=== PATIENT | male | born 1990 | race Caucasian/White ===

== ENCOUNTER 2017-09-24 02:22 | Emergency (ER) | payer MEDICAID ==
[~2017-09-24] VITALS: Ht 185.4 cm; Wt 88.5 kg
--- NOTE | 2017-09-24 02:22 | NUR ---
PT [place] [employer], PREBOOK. TAKEN TO OF4
[2017-09-24 02:25] VITALS: BP 158/70
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
== END 2017-09-24 02:50 ==
LOC: MED 02:22
DX: Z02.89 Encounter for other administrative examinations (principal); J06.9 Acute upper respiratory infection, unspecified; R03.0 Elevated blood-pressure reading, without diagnosis of hypertension
CPT/HCPCS: 99283

== ENCOUNTER 2018-03-06 16:58 | Inpatient (IN) | payer MEDICAID, OTHER ==
[~2018-03-06] VITALS: Ht 182.9 cm; Wt 104.3 kg
[2018-03-06 17:02] VITALS: BP 111/57
[2018-03-06] MEDS ORDERED: NACL 0.9% 1,000 ML IV ONE (17:10)
[2018-03-06 17:20] LABS: HEMATOCRIT 48.6 % (36-52); HEMOGLOBIN 15.4 g/dL (12.0-18.0); MEAN CORPUSCULAR HEMOGLOBIN 28 pg (27-31); MEAN CORPUSCULAR HGB CONC 32 g/dL (33-37); PLATELET COUNT (AUTO) 323 K/uL (140-450); RED BLOOD CELL COUNT(AUTO) 5.52 MIL/uL (4.20-6.10); RED CELL DISTRIBUTION WIDTH 15.7 % (11.6-13.7); WHITE BLOOD COUNT (AUTO) 19.7 K/uL (4.8-10.8)
--- NOTE | 2018-03-06 17:20 | NUR ---
PT BIBA, Per EMS, the mother witnessed the patient have 2 seizures, each lasting 1-2 minutes --> full tonic clonics. When EMS arrived on scene, EMS reports the patient was post-ictal the entire time. per EMS patient had another tonic clonic seizure with oral truama. Patient was given 0.25mg versed. EMS reports the patient was not compliant with his medications. Vitals: Blood sugar 135 per ems. pt is non responsive, airway is patent with spontaneous respirations even and unlabored. pt placed on all monitors, tachycardia at 130 bpm observed. pt placed on 5l via nc, o2 sats 97%, vs wnl otherwise. dr parada at bedside along with other er staff.
--- NOTE | 2018-03-06 17:24 | NUR ---
humphrey cath placed by joe Langley, draining clear yellow urine 200 ml output. 20 G IV placed by joe Johnson to LAC, blood drawn from IV. IVF NS bolus started per DR. DALTON.
--- NOTE | 2018-03-06 17:40 | NUR ---
DR DALTON AT BEDSIDE SPEAKING WITH FAMILY.
--- NOTE | 2018-03-06 17:40 | NUR ---
PT TO CT WITH YAZ MCGOWAN
[2018-03-06 17:41] LABS: EOSINOPHILS % (MANUAL) 3 % (0-4); LYMPHOCYTES % (MANUAL) 43 % (20-46); MONOCYTES % (MANUAL) 11 % (5-12)
--- NOTE | 2018-03-06 17:43 | NUR ---
PT WOKE UP, ABLE TO RECOGNIZE MOTHER, WAS ABLE TO EXPRESS NEEDS, AXO X3. REPORTS FEELING MILD DIZZINESS. FOLLOWING COMMANDS WELL. [facility] 15. DR DALTON AT BEDSIDE SPEAKING WITH PT, PT ANSWERING QUESTIONS IN FULL SENTENCES
[2018-03-06 18:03] LABS: ALBUMIN 4.6 g/dL (3.4-5.0); CREATININE 1.6 mg/dL (0.7-1.3); TOTAL BILIRUBIN 0.5 mg/dL (0.0-1.0)
--- NOTE | 2018-03-06 18:05 | NUR ---
PT IS FATIGUED, CONTINUES TO FALL ASLEEP. NO CHANGE IN CONDITION OTHERWISE. PT FOLLOWS COMMANDS WELL WHEN AWAKE.
[2018-03-06] MEDS ORDERED: LEVE1000 PO (18:06)
[2018-03-06 18:14] LABS: POTASSIUM 4.5 mmol/L (3.5-5.1)
[2018-03-06 18:20] LABS: ANION GAP 44.4 (8-16)
[2018-03-06 18:24] LABS: APPEARANCE,URINE CLEAR (CLEAR); BILIRUBIN,URINE NEGATIVE (NEGATIVE); BLOOD, URINE TRACE-I (NEGATIVE); COLOR,URINE YELLOW (YELLOW); LEUKOCYTE ESTERASE ,URINE NEGATIVE (NEGATIVE); NITRITE, URINE NEGATIVE (NEGATIVE); UGLUCOSE NEGATIVE (NEGATIVE)
[2018-03-06] MEDS ORDERED: levETIRAcetam 500 MG in NACL 0.9% 100 ML IV ONE (18:25)
--- NOTE | 2018-03-06 18:28 | NUR ---
DR. BABCOCK MADE AWARE OF CRITICAL RESULTS OF CT. SCAN HEAD. CODE BRAIN.
[2018-03-06 18:33] LABS: BARBITURATE, URINE NEG. ng/ml (NEG <=200); BENZODIAZEPINE, URINE NEG. ng/mL (NEG <=200); CANNABINOID, URINE POS. ng/mL (NEG <=50); COCAINE, URINE NEG. ng/mL (NEG <=300); OPIATE, URINE NEG. ng/mL (NEG <=2000); PHENCYCLIDINE SCREEN,URINE NEG. ng/mL (NEG <=25)
[2018-03-06 18:35] LABS: RBC,URINE 0-5 (RARE) /HPF (0-5); WBC,URINE 0-5 (RARE) /HPF (0-5)
--- NOTE | 2018-03-06 18:37 | NUR ---
RT AT BEDSIDE FOR ABG
[2018-03-06] MEDS ORDERED: MORPHINE SULFATE 2 MG/ML SYR IVP PRN (18:50)
[2018-03-06] MEDS ORDERED: LORazepam 2 MG/ML VIAL IVP PRN (18:50)
[2018-03-06] MEDS ORDERED: ACETAMINOPHEN 325 MG TAB PO PRN (18:50)
--- NOTE | 2018-03-06 19:12 | NUR ---
REPORT GIVEN TO YAZ UP.
--- NOTE | 2018-03-06 19:13 | NUR ---
RECEIVED REPORT FROM AM NURSE. PT RESTING COMFORTABLY IN BED, RR EVEN AND UNLABORED. ALL NEEDS MET AT THIS TIME.
--- NOTE | 2018-03-06 19:25 | NUR ---
Patient will be admitted to care of DR. CHEN. Admited to TELE. Will go to room 122A. Belongings list completed. Report to YAZ LAWS AT BEDSIDE.
[2018-03-06 19:27] VITALS: BP 118/69
--- NOTE | 2018-03-06 19:27 | NUR ---
RECEIVED REPORT FROM ANNEL ER NURSE AT BEDSIDE. PT TRANSPORT BY MAY. PT HAS OJEDA IN PLACE. PT IV NOTED LAC 20G. IN ER PT GIVEN 1L BOLUS OF NS AND KEPPRA IV. PT IS ON SEIZURE PRECAUTION. PT IS AAOX2. NO SOB NO S/S OF DISTRESS. BED LOWERED SIDE RAILS PATTED WILL CONTINUE TO MONITOR.
--- NOTE | 2018-03-06 19:32 | NUR ---
Dr. Edwin Ulloa notified of neurology consultation.
[2018-03-06] MEDS: ALBUTEROL 0.083% 2.5 MG/3 ML NEBU INH SCH (20:24)
[2018-03-06] MEDS: IPRATROPIUM 0.02% 0.5 MG/2.5 ML NEBU INH SCH (20:25)
[2018-03-06] MEDS ORDERED: levETIRAcetam 500 MG in NACL 0.9% 100 ML IV SCH (21:00)
[2018-03-06] MEDS: NACL 0.9% 1,000 ML IV SCH (21:20)
--- NOTE | 2018-03-06 21:30 | NUR ---
PT MOM IS AT BEDSIDE GOT HISTORY FROM MOM. PT SLEEPING. PT HAS OJEDA INSERTED. WILL CONTINUE TO MONITOR.
--- NOTE | 2018-03-06 23:00 | NUR ---
CALLED DR ZELAYA LEFT MESSAGE ON CELL. WILL WAIT FOR CALL BACK. NEED TO VERIFY PHONE ORDER FOR ALON AND TO LET HIM KNOW IMPRESSIONS OF CT
[2018-03-07] VITALS: BP 104/58
[2018-03-07] MEDS ORDERED: PIPERACILLIN/TAZOBACTAM 3.375 GM VIAL IV ONE ×2 (00:40→05:06)
[2018-03-07] MEDS: PIPERACILLIN/TAZOBACTAM 3.375 GM in DEXTROSE 5% 50 ML IV SCH ×2 (00:46→06:00)
[2018-03-07] MEDS: ALBUTEROL 0.083% 2.5 MG/3 ML NEBU INH SCH ×3 (01:00→13:00)
[2018-03-07] MEDS: IPRATROPIUM 0.02% 0.5 MG/2.5 ML NEBU INH SCH ×3 (01:00→13:00)
--- NOTE | 2018-03-07 01:12 | NUR ---
pt asleep. did not give hhntx.pt bs are clear no sob noted
--- NOTE | 2018-03-07 01:30 | NUR ---
PT SLEEPING. NO SOB. NO S/S OF DISTRESS. WILL CONTINUE TO MONITOR.
[2018-03-07] MEDS ORDERED: OXYTOCIN 10 UNITS/ML VIAL ONE (02:20)
[2018-03-07] MEDS ORDERED: ceFAZolin 1,000 MG VIAL ONE (02:20)
[2018-03-07] MEDS ORDERED: BUPIVACAINE-MPF 0.75% 10 ML VIAL INJ ONE (02:20)
[2018-03-07] MEDS ORDERED: ONDANSETRON 4 MG/2 ML VIAL ONE (02:20)
[2018-03-07 03:08] VITALS: BP 106/52
[2018-03-07 06:25] LABS: BASOPHILS % (AUTO) 0.3 % (0.0-2.0); EOSINOPHILS % (AUTO) 0.4 % (0.0-4.0); HEMOGLOBIN 13.1 g/dL (12.0-18.0); LYMPHOCYTES # (AUTO) 1.7 K/uL (2.0-11.5); MEAN CORPUSCULAR HEMOGLOBIN 28 pg (27-31); MEAN CORPUSCULAR HGB CONC 35 g/dL (33-37); MONOCYTES # (AUTO) 1.2 K/uL (0.8-1.0); MONOCYTES % (AUTO) 11.1 % (1.7-9.3); NEUTROPHILS # (AUTO) 8.1 K/uL (1.8-7.7); NEUTROPHILS % (AUTO) 73.2 % (42.2-75.2); PLATELET COUNT (AUTO) 230 K/uL (140-450); RED CELL DISTRIBUTION WIDTH 14.9 % (11.6-13.7); WHITE BLOOD COUNT (AUTO) 11.1 K/uL (4.8-10.8)
--- NOTE | 2018-03-07 07:21 | NUR ---
GAVE REPORT TO DAYSHIFT NURSE AT BEDSIDE FOR CONTINUITY OF CARE.
--- NOTE | 2018-03-07 07:22 | NUR ---
RECEIVED REPORT FROM FILLER SHREDDER HELPER NURSE, PT IS RESTING IN BED, AAOX4, CURRENTLY RECEIVING A BREATHING TREATMENT, PT HAS IV ON HIS LEFT AC, PATENT, INTACT, FLUSHING WELL, NO S/S OF RESPIRATORY DISTRESS OR DISCOMFORT NOTED, DISCUSSED PLAN OF CARE WITH PT, PT VERBALIZED UNDERSTANDING, SAFETY/FALL/SEIZURE PRECAUTIONS ARE IN PLACE, CALL LIGHT WITHIN REACH, WILL CONTINUE TO MONITOR.
[2018-03-07 08:00] VITALS: BP 138/79
[2018-03-07 08:24] LABS: ALBUMIN 3.6 g/dL (3.4-5.0); ANION GAP 14.3 (8-16); CARBON DIOXIDE 23.6 mmol/L (21-32); CREATININE 1.3 mg/dL (0.7-1.3); POTASSIUM 3.9 mmol/L (3.5-5.1); TOTAL BILIRUBIN 0.9 mg/dL (0.0-1.0)
--- NOTE | 2018-03-07 08:37 | NUR ---
PATIENT HAS BEEN SCREENED AND CATEGORIZED LOW NUTRITION RISK. PATIENT WILL BE SEEN WITHIN 7 DAYS OF ADMISSION. 03/13/[address]
[2018-03-07] MEDS ORDERED: levETIRAcetam 1,000 MG in NACL 0.9% 100 ML IV SCH (09:00)
[2018-03-07] MEDS ORDERED: ECOTRIN 81 MG TABEC PO SCH (09:00)
[2018-03-07] MEDS ORDERED: levETIRAcetam 500 MG TAB PO SCH (09:00)
[2018-03-07] MEDS: NACL 0.9% 1,000 ML IV SCH (09:20)
--- NOTE | 2018-03-07 10:46 | NUR ---
OJEDA CATHETER DISCONTINUED AT THIS TIME, PT TOLERATED WELL, CALL LIGHT WITHIN REACH.
[2018-03-07] MEDS: PIPER/TAZO 3.375GM/D5W PREMIX 50 ML IV SCH ×2 (11:38→12:50)
[2018-03-07 12:00] VITALS: BP 114/65
--- NOTE | 2018-03-07 13:37 | NUR ---
I CALLED DR. ZELAYA (NEUROLOGIST) PER DR. ZELAYA PATIENT MAYBE DISCHARGED HOME.
--- NOTE | 2018-03-07 16:00 | NUR ---
PT DISCHARGE INSTRUCTIONS GIVEN, PT IV REMOVED, CATHETER TIP INTACT, ID WRIST BAND REMOVED. PT ACCOMPANIED BY HIS MOTHER. PT STABLE UPON DISCHARGE.
--- NOTE | 2018-03-08 14:34 | NUR ---
INITIAL REVIEW FAXED TO [facility] [phone]
== END 2018-03-07 16:20 | disposition home or self-care (01) | DRG 53 ==
LOC: MED 16:58 → MTU 18:57
PROVIDERS: ADMIT Hospitalist; ATTEND Hospitalist
DX: G40.409 Other generalized epilepsy and epileptic syndromes, not intractable, without status epilepticus (principal); G93.40 Encephalopathy, unspecified; N17.9 Acute kidney failure, unspecified; E87.2 Acidosis; R09.02 Hypoxemia; D72.829 Elevated white blood cell count, unspecified; F12.10 Cannabis abuse, uncomplicated; F10.10 Alcohol abuse, uncomplicated; Y90.9 Presence of alcohol in blood, level not specified; E86.0 Dehydration; Z91.19 Patient's noncompliance with other medical treatment and regimen; Z79.899 Other long term (current) drug therapy; Z91.14 Patient's other noncompliance with medication regimen
CPT/HCPCS: 36415; 36600; 70450; 71045; 80053; 80305; 81001; 82550; 82803; 84484; 85025; 87081; 93005; 94640; 95816; 96361; 96365; 99291; J0690; J1644; J1953; J2405; J2543; J2590; J3490; J7030; J7060; J7613; J7644; Q0092

== ENCOUNTER 2018-06-29 13:19 | Inpatient (IN) | payer OTHER ==
[~2018-06-29] VITALS: Ht 188 cm; Wt 87.1 kg
[~2018-06-29 13:19] MED LIST: LEVE1000 PO
[2018-06-29 13:30] VITALS: BP 118/67
[2018-06-29] MEDS ORDERED: LORazepam 2 MG/ML VIAL IM ONE (13:35)
[2018-06-29] MEDS ORDERED: HALOPERIDOL IM 5 MG/ML VIAL IM ONE (13:35)
--- NOTE | 2018-06-29 14:00 | NUR ---
Eli arevalo in ED - 06/29/18 at 1427 by MED1 X RAY AT BEDSIDE.
--- NOTE | 2018-06-29 14:07 | NUR ---
27/M [place] & [place] [employer] FROM HOME ON HOLD 5150 .PER [place] [employer]; PT STATED WANT TO KILL HIMSELF & DOES NOT KNOW WHAT HAPPENED THAT HE HAS NOSE & JUSTIN KNEES ARASION. PT HAS HX OF DEPRESSION & SEIZURE. PT STATED " I WANT TO GO HOME & DON'T WANT TO HURT ANYONE OR MYSELF. PATIENT STATES PAIN OF 0/10 AT THIS TIME. PATIENT POSITIONED FOR COMFORT; HOB ELEVATED; BEDRAILS UP X2; BED DOWN. ER MD MADE AWARE OF PT STATUS.
[2018-06-29] MEDS ORDERED: diphenhydrAMINE 50 MG/ML VIAL IM ONE (14:10)
[2018-06-29 14:15] LABS: BASOPHILS % (AUTO) 0.4 % (0.0-2.0); EOSINOPHILS % (AUTO) 0.1 % (0.0-4.0); HEMOGLOBIN 14.3 g/dL (12.0-18.0); LYMPHOCYTES # (AUTO) 1.7 K/uL (2.0-11.5); LYMPHOCYTES % (AUTO) 21.2 % (20.5-51.1); MEAN CORPUSCULAR HEMOGLOBIN 29 pg (27-31); MEAN CORPUSCULAR HGB CONC 34 g/dL (33-37); MEAN CORPUSCULAR VOLUME 84.8 fL (80-94); MONOCYTES # (AUTO) 0.5 K/uL (0.8-1.0); MONOCYTES % (AUTO) 6.3 % (1.7-9.3); NEUTROPHILS # (AUTO) 5.6 K/uL (1.8-7.7); PLATELET COUNT (AUTO) 221 K/uL (140-450); RED BLOOD CELL COUNT(AUTO) 4.95 MIL/uL (4.20-6.10); WHITE BLOOD COUNT (AUTO) 7.8 K/uL (4.8-10.8)
--- NOTE | 2018-06-29 14:27 | NUR ---
X RAY AT BEDSIDE.
[2018-06-29] MEDS ORDERED: CLINDAMYCIN 600 MG/4 ML VIAL IM ONE (14:30)
[2018-06-29 14:35] LABS: ALBUMIN 4.5 g/dL (3.4-5.0); ANION GAP 15.2 (8-16); ASPARTATE AMINOTRANSFERASE 24 U/L (15-37); CARBON DIOXIDE 24.1 mmol/L (21-32); CHLORIDE 107 mmol/L (98-107); CREATININE 0.9 mg/dL (0.7-1.3); GFR ARICAN-AMERICAN 128 mL/min (>90); GLUCOSE 101 mg/dL (74-106); POTASSIUM 3.3 mmol/L (3.5-5.1); SODIUM SERUM 143 mmol/L (136-145); TOTAL BILIRUBIN 0.6 mg/dL (0.0-1.0); UREA NITROGEN, BLOOD 10 mg/dL (7-18)
[2018-06-29 14:48] LABS: ACETAMINOPHEN < 0.5 ug/ml (10-30); SALICYLATE < 2.8 mg/dL (2.8-20.0)
[2018-06-29 16:51] LABS: BARBITURATE, URINE NEG. ng/ml (NEG <=200); BENZODIAZEPINE, URINE NEG. ng/mL (NEG <=200); CANNABINOID, URINE POS. ng/mL (NEG <=50); OPIATE, URINE NEG. ng/mL (NEG <=2000)
--- NOTE | 2018-06-29 16:55 | NUR ---
Patient appears to be resting comfortably in bed. Vital Signs within normal limits. Respirations even and unlabored.WILL CONTINUE TO MONITOR.
--- NOTE | 2018-06-29 17:14 | NUR ---
RECEIVED REPORT FROM EVELIO, LAB : URINE ABNORMAL REACTION FOR COCAINE & PCP, CANNABINOIDS +. NOTIFIED TO DR SCHWARZ.
[2018-06-29 17:40] LABS: COCAINE, URINE NEGATIVE ng/mL (NEG <=300); PHENCYCLIDINE SCREEN,URINE NEGATIVE ng/mL (NEG <=25)
--- NOTE | 2018-06-29 17:54 | NUR ---
food tray provided for pt with steroform at this time. Addendum: 06/29/18 at 1835 by [email or web address] ATE 50% OF FOOD.LIBBY N/V AT THIS TIME
--- NOTE | 2018-06-29 18:36 | NUR ---
REPORT GIVEN TO ELEN MUKHERJEE . PT AT BED 5.
--- NOTE | 2018-06-29 18:37 | NUR ---
LAB AT BEDSIDE.
--- NOTE | 2018-06-29 18:56 | NUR ---
PT RESTING IN BED, VSS AT THIS TIME
--- NOTE | 2018-06-29 19:46 | NUR ---
RECEIVED REPORT FROM YAZ MYRICK, ASSUMED CARE OF PT AT THIS TIME. PT LAYING IN BED SLEEPING AROUSABLE TO VERBAL STIMULI, CALM AND ACTING APPROPRIATE.
--- NOTE | 2018-06-29 20:45 | NUR ---
PT SLEEPING AROUSABLE TO VERBAL STIMULI, PT DENIES SUICIDAL IDEATION AT THIS TIME.
--- NOTE | 2018-06-29 21:01 | NUR ---
INITIATED TELE PSYCH PER DR. FORD
--- NOTE | 2018-06-29 21:19 | NUR ---
TELE PSYCH DOCTOR, DR. SHORT, SPOKE WITH RN. Yves BATEMAN
--- NOTE | 2018-06-29 21:38 | NUR ---
DR. SHORT SPEAKING WITH PATIENT THROUGH TELE PSYCH
--- NOTE | 2018-06-29 22:40 | NUR ---
PATIENT MOTHER AT BEDSIDE.
--- NOTE | 2018-06-29 23:00 | NUR ---
WILL CONTINUE W/ HOLD, PT MADE AWARE, MOTHER AWARE OF PT STATUS, PT CALM AND ACTING APPROPRIATE.
--- NOTE | 2018-06-30 00:01 | NUR ---
Patient appears to be resting comfortably in bed. Vital Signs within normal limits. Respirations even and unlabored.emt beka at bedside
[2018-06-30] MEDS ORDERED: LAM25 PO ×2 (00:10→20:33)
[2018-06-30] MEDS: NACL 0.9% 1,000 ML IV SCH ×3 (00:38→12:49)
[2018-06-30] MEDS ORDERED: LORazepam 2 MG/ML VIAL IVP PRN (00:40)
[2018-06-30] MEDS ORDERED: MORPHINE SULFATE 2 MG/ML SYR IVP PRN (00:40)
[2018-06-30] MEDS ORDERED: HYDROcodone/APAP 5/325 MG 1 TAB TAB PO PRN (00:40)
[2018-06-30] MEDS ORDERED: ONDANSETRON 4 MG/2 ML VIAL IVP PRN (00:40)
[2018-06-30] MEDS ORDERED: ACETAMINOPHEN 325 MG TAB PO PRN (00:40)
[2018-06-30 01:00] VITALS: BP 134/95
--- NOTE | 2018-06-30 01:00 | NUR ---
Admitted from ER TO MED SURGICAL UNIT , with chief complaint of ALTERED MENTAL STATUS, 27 y/o ,Male, Cooperative. WAS PUT ON 5150 HOLD BY [place] [employer], PER REPORT PATIENT STATED HE WANTS TO KILL HIMSELF BUT DENIES SUICIDAL THOUGHTS AT THIS TIME. SALINE LOCK AT THE LEFT HAND G20, PATENT AND INTACT. POSITIVE FOR ALCOHOL AND CANNABINOIDS. NOTED SCAB ON THE BRIDGE OF NOSE AND WITH ABRASIONS ON BOTH KNEES, STATED HE GOT IT WHEN HE FELL. PLAN OF CARE DISCUSSED. VERBALIZED UNDERSTANDING. DENIES PAIN 0/10. oriented to call light, bed, phone,television, bathroom, smoking policy,visiting hours, procedures, ID bracelet on. Belongings list checked.
--- NOTE | 2018-06-30 01:00 | NUR ---
Patient will be admitted to care of DR CLEMENTE. Admited to MED SURG. Will go to [id number]. Belongings list completed. Report to YAZ BOWLING.
--- NOTE | 2018-06-30 01:15 | NUR ---
ADMIT PHOTOS TAKEN OF BILATERAL ABRASION OF THE KNEES AND MEDIAL ABRASION SCAB ON THE NOSE.
--- NOTE | 2018-06-30 01:30 | NUR ---
Patient's Plan of Care was discussed and reviewed with DYE HOUSE WORKER: TAWNYA CLEMONS LVN.
--- NOTE | 2018-06-30 01:30 | NUR ---
PT DENIED FLU VAC.
--- NOTE | 2018-06-30 04:40 | NUR ---
[facility] aware patient is admitted into Tele Unit. Patients Chart faxed over to Lakeisha DUVALL, Lakeisha PEREZ, and Ferdinand Rossi for review. No update from contacted hospitals at this time. No bed vacancies at the following facilities: Lakeisha DUVALL s/w Wily Su[facility] [place] s/w Socorro Almanza s/w Adelaida Campbell [facility] Left Message No answer Ferdinand Rossi s/w Loretta Veliz s/w Stephanie Garrett On License Of [facility] s/w Yan Anthony Comm s/w Sumi will endorse to morning shift to continue looking for placement.
--- NOTE | 2018-06-30 05:30 | NUR ---
SLEEPING COMFORTABLY IN BED. 1:1 SITTER MONITORING PATIENT BEHAVIOR.
--- NOTE | 2018-06-30 07:15 | NUR ---
SLEPT WELL. CONDITION REMAIN STABLE. ENDORSED TO YAZ MAHER FOR CONTINUITY OF CARE.
--- NOTE | 2018-06-30 07:30 | NUR ---
RECEIVED ON BED AAOX4. NO SOB NOTED. NO C/O PAIN AT THIS TIME. IV TO LT HAND PATENT AND INTACT. CHEST CLEAR. ABDOMEN SOFT, BOWEL SOUNDS PRESENT. NO EDEMA NOTED. ABRASIONS TO NOSE BRIDGE AND BILATERAL KNEES NOTED, OPEN TO AIR. NO SUICIDAL THOUGHTS PER PT AT THIS TIME. INSTRUCTED PT TO CALL FOR ASSISTANCE, WITH 1:1 SITTER AT THE BEDSIDE. PT VERBALIZED UNDERSTANDING.
[2018-06-30 08:00] VITALS: BP 112/50
--- NOTE | 2018-06-30 08:05 | NUR ---
PATIENT HAS BEEN SCREENED AND CATEGORIZED LOW NUTRITION RISK. PATIENT WILL BE SEEN WITHIN 7 DAYS OF ADMISSION. 07/06/[address]
[2018-06-30] MEDS ORDERED: ENOXAPARIN 40 MG/0.4 ML SYR SUBQ SCH (09:00)
--- NOTE | 2018-06-30 10:31 | NUR ---
CM NOTE ADMISSION REVIEW DONE. INITIAL REVIEW FAXED TO [facility] [phone] SEAN # [phone].
[2018-06-30 16:00] VITALS: BP 140/73
--- NOTE | 2018-06-30 17:44 | NUR ---
PT SEEN BY DR. CLEMENTE AT THE BEDSIDE. NEW ORDERS GIVEN. CALLED DR. COOLEY REGARDING THE [facility] CONSULT, STATED HE WILL SEE PT WITHIN AN HOUR. DR. CLEMENTE NOTIFIED. Addendum: 06/30/18 at 1928 by Sandy Morales RN *PSYCHIATRIST CONSULT*
--- NOTE | 2018-06-30 19:00 | NUR ---
RECEIVED BEDSIDE REPORT FROM YAZ MAHER. PT IN BED, ON RA, 1:1 SITTER NO SIGNS OF ACUTE DISTRESS. IV IN LEFT HAND 20 G, SL. V/S TAKEN B/P: 150/75 REASSESSED PT LYING DOWN 135/50. HR: 61, TEMP 98.3, O2 SAT 97%, DENIES PAIN. EXPLAINED PLAN OF CARE. WILL CONTINUE TO MONITOR.
--- NOTE | 2018-06-30 19:00 | NUR ---
PT RESTING. NO SOB NOTED. NO COMPLAINTS MADE. WILL ENDORSE TO NEXT SHIFT NURSE FOR CONTINUITY OF CARE.
[2018-06-30 20:00] VITALS: BP 150/75
--- NOTE | 2018-06-30 20:15 | NUR ---
CALLED DR NEWMAN TO CLARIFY IF PT CAN BE CLEARED OF [address] NEWMAN STATED "YES THAT'S FINE". ORDER TO DISCONTINUE HOLD, WILL PUT IN ORDER TO DISCONTINUE [address] CLEMENTE TO CLARIFY IF OKAY TO DISCHARGE PATIENT HOME. Addendum: 06/30/18 at 2152 by Camille Back RN NO RECOMMENDATIONS FOR PATIENT ACCORDING TO DR NEWMAN.
--- NOTE | 2018-06-30 20:23 | NUR ---
CALL FROM GREG DARLING TO DISCHARGE PATIENT HOME. NO NEW MEDICATIONS ORDERED. WILL PUT IN ORDER TO DISCHARGE PATIENT.
[2018-06-30 20:37] VITALS: BP 135/58
[2018-06-30] MEDS ORDERED: levETIRAcetam 500 MG TAB PO SCH (21:00)
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
--- NOTE | 2018-07-01 14:33 | NUR ---
No new updates/No beds from the following faxed facilities: Lakeisha Siddiqui [facility]
== END 2018-06-30 21:20 | disposition home or self-care (01) | DRG 775 ==
LOC: MED 13:19 → MTU 06-30 00:38
PROVIDERS: ADMIT Internal Medicine; ATTEND Internal Medicine
PROC: 3E0234Z Introduction of Serum, Toxoid and Vaccine into Muscle, Percutaneous Approach (ICD-10-PCS; principal; 2018-06-30)
DX: F10.129 Alcohol abuse with intoxication, unspecified (principal); R45.851 Suicidal ideations; E87.6 Hypokalemia; G40.909 Epilepsy, unspecified, not intractable, without status epilepticus; Y90.8 Blood alcohol level of 240 mg/100 ml or more; F32.9 Major depressive disorder, single episode, unspecified; F17.210 Nicotine dependence, cigarettes, uncomplicated; Z79.899 Other long term (current) drug therapy; Z91.5 Personal history of self-harm; Z23 Encounter for immunization
CPT/HCPCS: 36415; 70160; 71045; 80053; 80305; 85025; 87081; 90471; 90715; 93005; 96372; 99285; C1758; G0480; G0482; J1200; J1630; J1650; J2060; J3490; J7030; Q0092

== ENCOUNTER 2018-10-22 16:54 | Emergency (ER) | payer OTHER ==
[~2018-10-22] VITALS: Ht 172.7 cm; Wt 79.4 kg
[~2018-10-22 16:54] MED LIST changes: +LAM25 PO; -LEVE1000 PO
--- NOTE | 2018-10-22 17:00 | NUR ---
PT TAKEN TO BED 9 BY WHEELCHAIR.
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
[2018-10-22 17:35] VITALS: BP 142/95
--- NOTE | 2018-10-22 19:04 | NUR ---
Recieved report from Jos MUKHERJEE.
[2018-10-22 20:02] LABS: BASOPHILS # (AUTO) 0.1 K/uL (0.00-0.22); BASOPHILS % (AUTO) 0.9 % (0.0-2.0); EOSINOPHILS # (AUTO) 0.1 K/uL (0-0.4); EOSINOPHILS % (AUTO) 0.7 % (0.0-4.0); HEMATOCRIT 43.6 % (36-52); HEMOGLOBIN 14.4 g/dL (12.0-18.0); LYMPHOCYTES # (AUTO) 2.5 K/uL (2.0-11.5); LYMPHOCYTES % (AUTO) 30.9 % (20.5-51.1); MEAN CORPUSCULAR HEMOGLOBIN 28 pg (27-31); MEAN CORPUSCULAR HGB CONC 33 g/dL (33-37); MEAN CORPUSCULAR VOLUME 84.7 fL (80-94); MONOCYTES # (AUTO) 0.6 K/uL (0.8-1.0); MONOCYTES % (AUTO) 7.8 % (1.7-9.3); NEUTROPHILS # (AUTO) 4.8 K/uL (1.8-7.7); NEUTROPHILS % (AUTO) 59.7 % (42.2-75.2); PLATELET COUNT (AUTO) 271 K/uL (140-450); RED BLOOD CELL COUNT(AUTO) 5.15 MIL/uL (4.20-6.10); RED CELL DISTRIBUTION WIDTH 13.8 % (11.6-13.7); WHITE BLOOD COUNT (AUTO) 8.1 K/uL (4.8-10.8)
[2018-10-22 20:08] LABS: CARBON DIOXIDE 30.7 mmol/L (21-32); CREATININE 0.9 mg/dL (0.7-1.3); POTASSIUM 3.7 mmol/L (3.5-5.1)
[2018-10-22 20:14] LABS: ALBUMIN 4.1 g/dL (3.4-5.0); TOTAL BILIRUBIN 0.6 mg/dL (0.0-1.0)
[2018-10-22 20:30] LABS: APPEARANCE,URINE CLEAR (CLEAR); BILIRUBIN,URINE NEGATIVE (NEGATIVE); BLOOD, URINE NEGATIVE (NEGATIVE); COLOR,URINE YELLOW (YELLOW); LEUKOCYTE ESTERASE ,URINE NEGATIVE (NEGATIVE); NITRITE, URINE NEGATIVE (NEGATIVE); PH,URINE 7.5 (5.0-9.0); UGLUCOSE NEGATIVE (NEGATIVE)
[2018-10-22 20:36] VITALS: BP 129/78
--- NOTE | 2018-10-22 20:36 | NUR ---
Patient discharged with v/s stable. Written and verbal after care instructions given and explained. Patient verbalized understanding. Ambulatory with steady gait. All questions addressed prior to discharge. Advised to follow up with PMD.
[2018-10-22 20:38] LABS: BARBITURATE, URINE NEG. ng/ml (NEG <=200); BENZODIAZEPINE, URINE NEG. ng/mL (NEG <=200); CANNABINOID, URINE POS. ng/mL (NEG <=50); COCAINE, URINE NEG. ng/mL (NEG <=300); OPIATE, URINE NEG. ng/mL (NEG <=2000); PHENCYCLIDINE SCREEN,URINE NEG. ng/mL (NEG <=25)
== END 2018-10-22 20:36 | disposition home or self-care (01) ==
LOC: MED 16:54
DX: F41.9 Anxiety disorder, unspecified (principal); F15.90 Other stimulant use, unspecified, uncomplicated; F12.90 Cannabis use, unspecified, uncomplicated; F17.210 Nicotine dependence, cigarettes, uncomplicated; Z79.899 Other long term (current) drug therapy
CPT/HCPCS: 36415; 71045; 80053; 80305; 81003; 84484; 85025; 93005; 99284; Q0092

== ENCOUNTER 2019-04-15 01:40 | Inpatient (IN) | payer OTHER ==
[~2019-04-15] VITALS: Ht 188 cm; Wt 88.0 kg
[2019-04-15 01:42] VITALS: BP 142/116
--- NOTE | 2019-04-15 01:43 | NUR ---
PT [facility]. TAKEN TO BED 5
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
--- NOTE | 2019-04-15 01:53 | NUR ---
TELEPSYCH INITIATED PER DR. Macy ESCOBAR
[2019-04-15 02:18] LABS: BASOPHILS # (AUTO) 0.1 K/uL (0.00-0.22); BASOPHILS % (AUTO) 0.8 % (0.0-2.0); EOSINOPHILS % (AUTO) 0.3 % (0.0-4.0); HEMOGLOBIN 14.2 g/dL (12.0-18.0); LYMPHOCYTES % (AUTO) 23.2 % (20.5-51.1); MEAN CORPUSCULAR HEMOGLOBIN 28 pg (27-31); MEAN CORPUSCULAR HGB CONC 34 g/dL (33-37); MONOCYTES # (AUTO) 1.2 K/uL (0.8-1.0); MONOCYTES % (AUTO) 9.5 % (1.7-9.3); NEUTROPHILS # (AUTO) 8.5 K/uL (1.8-7.7); NEUTROPHILS % (AUTO) 66.2 % (42.2-75.2); PLATELET COUNT (AUTO) 303 K/uL (140-450); RED BLOOD CELL COUNT(AUTO) 5.06 MIL/uL (4.20-6.10); RED CELL DISTRIBUTION WIDTH 14.2 % (11.6-13.7); WHITE BLOOD COUNT (AUTO) 12.8 K/uL (4.8-10.8)
--- NOTE | 2019-04-15 02:30 | NUR ---
PT IS AWAKE, SITTING ON BED. NO BEHAVIOR ISSUES. PRESENTS QUIET. DR ESCOBAR AWARE. WILL CONTINUE TO MONITOR [id number] WITH ED STAFF AT BEDSIDE.
[2019-04-15 02:35] LABS: BILIRUBIN,URINE 2+ (NEGATIVE); BLOOD, URINE NEGATIVE (NEGATIVE); COLOR,URINE YELLOW (YELLOW); LEUKOCYTE ESTERASE ,URINE NEGATIVE (NEGATIVE); NITRITE, URINE NEGATIVE (NEGATIVE); UGLUCOSE NEGATIVE (NEGATIVE)
[2019-04-15 02:39] LABS: ANION GAP 17.1 (8-16); CHLORIDE 101 mmol/L (98-107); CREATININE 1.1 mg/dL (0.7-1.3); GFR ARICAN-AMERICAN 101 mL/min (>90); GLUCOSE 79 mg/dL (74-106); POTASSIUM 4.1 mmol/L (3.5-5.1); SODIUM SERUM 143 mmol/L (136-145); UREA NITROGEN, BLOOD 22 mg/dL (7-18)
[2019-04-15 02:42] LABS: BARBITURATE, URINE NEG. ng/ml (NEG <=200); BENZODIAZEPINE, URINE NEG. ng/mL (NEG <=200); CANNABINOID, URINE POS. ng/mL (NEG <=50); COCAINE, URINE NEG. ng/mL (NEG <=300); OPIATE, URINE NEG. ng/mL (NEG <=2000); PHENCYCLIDINE SCREEN,URINE NEG. ng/mL (NEG <=25)
[2019-04-15 02:45] LABS: ALBUMIN 4.1 g/dL (3.4-5.0); ASPARTATE AMINOTRANSFERASE 21 U/L (15-37)
[2019-04-15 02:47] LABS: ACETAMINOPHEN < 0.5 ug/ml (10-30); SALICYLATE < 2.8 mg/dL (2.8-20.0)
[2019-04-15 02:48] LABS: APPEARANCE,URINE SLIGHTLY HAZY (CLEAR)
[2019-04-15 02:49] LABS: RBC,URINE 0-5 /HPF (0-5); WBC,URINE 0-5 /HPF (0-5)
--- NOTE | 2019-04-15 03:30 | NUR ---
PT AWAKE, LAYING ON BED. NO BEHAVIOR ISSUES, PT IS QUIET. DR ESCOBAR AWARE. WILL CONTINUE TO MONITOR [id number] WITH ED STAFF AT BEDSIDE.
--- NOTE | 2019-04-15 04:30 | NUR ---
PT IS AWAKE, LAYING ON BED. NO BEHAVIOR ISSUES. PT VSS. DR ESCOBAR AWARE. WILL CONTINUE TO MONITOR Q15 WITH ED STAFF AT BEDSIDE.
--- NOTE | 2019-04-15 04:43 | NUR ---
CALLED TELEPSYCH FOR FOLLOW UP. TOLD A DOCTOR SHOULD CONTACT US IN 20 MIN
--- NOTE | 2019-04-15 04:57 | NUR ---
TELEPSYCH, DR. KING, SPOKE WITH YAZ HARDEN
--- NOTE | 2019-04-15 05:01 | NUR ---
TELEPSYCH, DR. KING, SPEAKING WITH PATIENT VIA REMOTE COMMUNICATION
--- NOTE | 2019-04-15 05:30 | NUR ---
PT IS AWAKE, SITTING ON BED TALKING TO STAFF. PRESENTS DISORGANIZED AND NONSENSICAL DURING CONVERSATIONS. NO BEHAVIOR ISSUES. PT VSS. DR ESCOBAR AWARE. WILL CONTINUE TO MONITOR.
[2019-04-15] MEDS ORDERED: DIVA250T PO (06:14)
--- NOTE | 2019-04-15 07:16 | NUR ---
REPORT GIVEN TO ARMANI MUKHERJEE. PT CARE TRANSFERRED.
--- NOTE | 2019-04-15 07:21 | NUR ---
Received report from Sanjiv Wiseman RN. Pt awake, laying on bed; resting comfortably. 1:1 sitter at bedside. Environmental safety checks done.
--- NOTE | 2019-04-15 08:07 | NUR ---
221G IV ACCESS ESTABLISHED TO LEFT FOREARM; PT TOLERATED PROCEDURE WELL.
--- NOTE | 2019-04-15 08:44 | NUR ---
RECEIVED BEDSIDE REPORT FROM ER NURSE. PATIENT IS AWAKE, ALERT AND ORIENTEDX4. NO SIGNS OF DISTRESS ON RA. SKIN IS INTACT. IV ON L FA 22G. CLEAN, DRY AND INTACT. ALL ADMISSION QUESTIONS ANSWERED. MRSA DONE. PATIENT IS AMBULATORY. CONTINENT. WILL CONTINUE TO MONITOR THE PATIENT. 1:1 SITTER AT BEDSIDE
--- NOTE | 2019-04-15 08:48 | NUR ---
Patient admitted to Med-Surg room 109A. Belongings list completed. Report to YAZ Ruffin. Pt transported via wheelchair by YAZ Kwan. Pt in stable condition; tranfer of care at this time.
[2019-04-15 09:00] VITALS: BP 124/81
[2019-04-15] MEDS ORDERED: LORazepam 1 MG TAB PO PRN (09:05)
[2019-04-15] MEDS ORDERED: LORazepam 1 MG TAB PO SCH (09:32)
--- NOTE | 2019-04-15 09:33 | NUR ---
PATIENT FEELS LIKE HE MIGHT HAVE SEIZURES, DR FARRELL SAID TO GIVE ONE TIME DOSE OF ATIVAN. PATIENT TOLERATED WELL. EDUCATED ON SIDE EFFECTS. WILL CONTINUE TO MONITOR THE PATIENT. 1:1 SITTER AT BEDSIDE
--- NOTE | 2019-04-15 11:00 | NUR ---
PATIENT COMMUNICATING W STUDENT NURSES. NO SIGNS OF DISTRESS. WILL CONTINUE TO MONITOR. 1:1 SITTER AT BEDSIDE
--- NOTE | 2019-04-15 12:16 | NUR ---
PATIENT HAS BEEN SCREENED AND CATEGORIZED LOW NUTRITION RISK. PATIENT WILL BE SEEN WITHIN 7 DAYS OF ADMISSION. 04/22/[address], [address]
--- NOTE | 2019-04-15 12:48 | NUR ---
PATIENT SITTING IN BED. NO SIGNS OF DISTRESS. 1:1 SITTER AT BEDSIDE
--- NOTE | 2019-04-15 12:55 | NUR ---
FAXED REQUEST FOR MED RECON TO [facility] AT [phone]. [place]. COPY IN CHART
--- NOTE | 2019-04-15 13:30 | NUR ---
CALLED [facility] TO ASK FOR MED RECON. REQUEST WAS SENT ALREADY. THEY SAID THEY WILL SEND IT NOW
--- NOTE | 2019-04-15 13:46 | NUR ---
PATIENT STANDING AT THE DOOR. NO SIGNS OF DISTRESS. WILL CONTINUE TO MONITOR THE PATIENT
--- NOTE | 2019-04-15 13:58 | NUR ---
CALLED [facility] AGAIN. THEY SAID THEY WILL FAX IT AGAIN BECAUSE I DID NOT RECEIVE THE THE FAX EARLIER
--- NOTE | 2019-04-15 15:16 | NUR ---
PATIENT IS SLEEPING. NO SIGNS OF DISTRESS. 1:1 SITTER AT BEDSIDE
[2019-04-15 16:00] VITALS: BP 119/80
[2019-04-15] MEDS ORDERED: TRAZ-343 PO (16:24)
[2019-04-15] MEDS ORDERED: BEN50 PO (16:24)
[2019-04-15] MEDS ORDERED: BUS5 PO (16:24)
[2019-04-15] MEDS ORDERED: DIVA250E1 PO (16:24)
[2019-04-15] MEDS ORDERED: LURA80TA PO (16:24)
[2019-04-15] MEDS ORDERED: ESCI5TAB PO (16:24)
--- NOTE | 2019-04-15 17:00 | NUR ---
PATIENT IN NO DISTRESS. WILL CONTINUE TO MONITOR. 1:1 SITTER AT BEDSIDE
--- NOTE | 2019-04-15 18:07 | NUR ---
PATIENT WANTS HOME MEDS. PAGED DR FARRELL TO LET HIM KNOW IF HE WANTS TO CONTINUE HOME MEDS.
--- NOTE | 2019-04-15 18:14 | NUR ---
PER DR MAK CONTINUE ALL HOME MEDS
--- NOTE | 2019-04-15 18:25 | NUR ---
KAITY, CREAMERY WORKER, SAID OK FOR PATIENT TO HAVE CELL PHONE. HES ANXIOUS AND SAYS HE JUST REALLY NEEDS TO USE HIS PHONE TO TALK TO FAMILY AND FRIENDS TO CALM DOWN. SECURITY IS BRINGING PATIENTS CELLPHONE
--- NOTE | 2019-04-15 19:05 | NUR ---
GAVE BEDSIDE REPORT TO GAS PLANT DISPATCHER NURSE. PATIENT ENDORSED IN STABLE CONDITION.
--- NOTE | 2019-04-15 19:06 | NUR ---
RECEIVED BEDSIDE REPORT FROM DAY SHIFT NURSE FREEDOM RN. PT STABLE, NO DISTRESS NOTED, IV TO L FA 22G PATENT, INTACT, SL, PT ON ROOM, AIR, NO SOB NOTED, PT STATED NOT HAVING ANY SUICIDAL THOUGHTS AT THIS MOMENT, INITIAL ASSESSMENT DONE, ALL SAFETY PRECAUTION MET, SITTER AT BEDSIDE, WILL CONTINUE TO MONITOR.
[2019-04-15] MEDS: busPIRone 5 MG TAB PO SCH (20:35)
--- NOTE | 2019-04-15 20:35 | NUR ---
DUE MEDICATION ADMINISTERED, PT TOLERATED WELL, PT REFUSED TRAZODONE, STATED DOES NOT NEED SLEEPING PILLS FOR TODAY, PT RESTING, NO DISTRESS NOTED, CALL LIGHT WITHIN REACH, WILL CONTINUE TO MONITOR.
[2019-04-15] MEDS: DIVALPROEX 250 MG TABEC PO SCH (20:36)
[2019-04-15] MEDS ORDERED: diphenhydrAMINE 50 MG CAP PO SCH (21:00)
[2019-04-15] MEDS ORDERED: traZODone 50 MG TAB PO SCH (21:00)
--- NOTE | 2019-04-15 22:31 | NUR ---
PT IN ROOM, INTERACTING APPROPRIATELY, NO DISTRESS NOTED, SITTER AT BEDSIDE, WILL CONTINUE TO MONITOR.
[2019-04-16] VITALS: BP 116/70
--- NOTE | 2019-04-16 00:03 | NUR ---
CHECKED ON PT, PT SLEEPING, V/S TAKEN, WNL, SITTER AT BEDSIDE, WILL CONTINUE TO MONITOR.
--- NOTE | 2019-04-16 02:42 | NUR ---
PT SLEEPING, NO DISTRESS NOTED, SITTER AT BEDSIDE, WILL CONTINUE TO MONITOR.
--- NOTE | 2019-04-16 05:58 | NUR ---
PT SLEEPING, NO DISTRESS NOTED, SITTER AT BEDSIDE.
--- NOTE | 2019-04-16 07:13 | NUR ---
ENDORSED PT TO DAY SHIFT NURSE GENIA RN, PT STABLE, NO DISTRESS NOTED, SITTER AT BEDSIDE.
--- NOTE | 2019-04-16 07:14 | NUR ---
RECEIVED ENDORSEMENT FROM DIRECTOR AMBULATORY NURSE LADI. PATIENT IS AAOX4, OMANI SPEAKING. RESPIRATIONS ARE EVEN AND UNLABORED ON ROOM AIR. PATIENT DENIES ANY SUICIDAL IDEATION OR PAIN AT THIS TIME. LEFT AC 22G IV INTACT AND SL. PLAN OF CARE WAS REVIEWED WITH PATIENT, PATIENT VERBALIZED UNDERSTANDING. SAFETY MEASURES IN PLACE, SITTER AT BEDSIDE.
[2019-04-16 08:00] VITALS: BP 105/61
[2019-04-16] MEDS ORDERED: ESCITALOPRAM 20 MG TAB PO SCH (09:00)
[2019-04-16] MEDS ORDERED: LURASIDONE HCL 120 MG PO SCH (09:00)
[2019-04-16] MEDS: DIVALPROEX 250 MG TABEC PO SCH (09:14)
[2019-04-16] MEDS: busPIRone 5 MG TAB PO SCH (09:15)
--- NOTE | 2019-04-16 09:15 | NUR ---
ADMINISTERED SCHEDULED MEDICATIONS. PATIENT TOLERATED WELL. PATIENT DENIES ANY PAIN AT THIS TIME. NO OTHER NEEDS AT THIS TIME, WILL CONTINUE TO MONITOR.
--- NOTE | 2019-04-16 11:30 | NUR ---
PATIENT SITTING IN BED. PATIENT DENIES ANY SUICIDAL IDEATION OR PAIN AT THIS TIME. NO OTHER NEEDS AT THIS TIME, WILL CONTINUE TO MONITOR.
--- NOTE | 2019-04-16 13:05 | NUR ---
PATIENT SITTING IN BED. DENIES ANY PAIN OR SUICIDAL IDEATION AT THIS TIME. NO OTHER NEEDS AT TIME, WILL CONTINUE TO MONITOR.
--- NOTE | 2019-04-16 15:20 | NUR ---
PATIENT RESTING IN BED. DENIES ANY PAIN AT THIS TIME. NO OTHER NEEDS AT THIS TIME, WILL CONTINUE TO MONITOR.
[2019-04-16 16:00] VITALS: BP 107/68
[2019-04-16] MEDS ORDERED: DIVALPROEX 500 MG TABEC PO SCH (16:42)
--- NOTE | 2019-04-16 17:30 | NUR ---
DR. PRESTON WITH PATIENT. NO OTHER NEEDS AT THIS TIME, WILL CONTINUE TO MONITOR.
--- NOTE | 2019-04-16 19:27 | NUR ---
ENDORSED TO BREWERY TECHNICIAN NURSE ISAC FOR CONTINUITY OF CARE. PATIENT IS STABLE AT THIS TIME.
--- NOTE | 2019-04-16 19:28 | NUR ---
RECEIVED REPORT FROM AM NURSE. PT AWAKE, ALERT AND ORIENTED. ABLE TO ANSWER QUESTIONS AND FOLLOW COMMANDS. VISIBLE CHEST RISE AND FALL ON ROOM AIR WITH NO NOTED DISTRESS. NO C/O DISCOMFORT. PT AMBULATORY WITH STEADY GAIT. PT DENIES S/I. PT CLEARED BY PSYCHIATRY AND OFF 5150 HOLD. WILL CONTINUE TO MONITOR.
[2019-04-16 20:40] VITALS: BP 115/68
[2019-04-16 20:56] VITALS: BP 115/68
--- NOTE | 2019-04-16 21:10 | NUR ---
PT AWAKE, ALERT AND ORIENTED X4. BREATHING EQUAL AND UNLABORED ON ROOM AIR. NO C/O DISCOMFORT. DENIES S/I. GAIT STABLE. PT GIVEN BELONGINGS AND SIGNED D/C PAPERWORK. PT GIVEN HOMELESS RESOURCE PACKET. PT GIVEN BUS TICKET AND STATES HE IS GOING TO HIS MOM'S HOUSE. IV REMOVED, CANNULA INTACT. ARM BAND REMOVED. PT STABLE AND DISCHARGED AT THIS TIME.
== END 2019-04-16 21:31 | disposition home or self-care (01) | DRG 776 ==
LOC: MED 01:40 → MTU 08:10
PROVIDERS: ADMIT Internal Medicine; ATTEND Internal Medicine
DX: F15.10 Other stimulant abuse, uncomplicated (principal); R45.851 Suicidal ideations; F43.10 Post-traumatic stress disorder, unspecified; G40.909 Epilepsy, unspecified, not intractable, without status epilepticus; F32.9 Major depressive disorder, single episode, unspecified; F12.10 Cannabis abuse, uncomplicated; Z59.0 Homelessness; Z91.5 Personal history of self-harm
CPT/HCPCS: 36415; 80053; 80305; 81001; 85025; 86702; 87081; 87086; 99285; G0480; G0482; Q0163

== ENCOUNTER 2019-05-01 22:17 | Inpatient (IN) | payer MEDICAID, OTHER ==
[~2019-05-01] VITALS: Ht 188 cm; Wt 90.7 kg
[2019-05-01 22:17] VITALS: BP 127/77
[~2019-05-01 22:17] MED LIST changes: +BEN50 PO; +BUS5 PO; +DIVA250E1 PO; +DIVA250T PO; +ESCI5TAB PO; -LAM25 PO; +LURA80TA PO; +TRAZ-343 PO
--- NOTE | 2019-05-01 22:17 | NUR ---
PT BROUGHT TO BED 76 BY AMBULANCE GURAJ Addendum: 05/01/19 at 2322 by MEDRR PT BROUGHT TO BED 6 BY AMBULANCE MAY
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
[2019-05-01 22:49] LABS: BASOPHILS # (AUTO) 0.1 K/uL (0.00-0.22); BASOPHILS % (AUTO) 0.7 % (0.0-2.0); EOSINOPHILS # (AUTO) 0.1 K/uL (0-0.4); EOSINOPHILS % (AUTO) 0.6 % (0.0-4.0); HEMATOCRIT 39.2 % (36-52); HEMOGLOBIN 13.2 g/dL (12.0-18.0); LYMPHOCYTES # (AUTO) 2.9 K/uL (2.0-11.5); LYMPHOCYTES % (AUTO) 26.8 % (20.5-51.1); MEAN CORPUSCULAR HEMOGLOBIN 28 pg (27-31); MEAN CORPUSCULAR HGB CONC 34 g/dL (33-37); MONOCYTES % (AUTO) 9.1 % (1.7-9.3); NEUTROPHILS # (AUTO) 6.7 K/uL (1.8-7.7); NEUTROPHILS % (AUTO) 62.8 % (42.2-75.2); PLATELET COUNT (AUTO) 228 K/uL (140-450); RED BLOOD CELL COUNT(AUTO) 4.67 MIL/uL (4.20-6.10); RED CELL DISTRIBUTION WIDTH 14.7 % (11.6-13.7); WHITE BLOOD COUNT (AUTO) 10.7 K/uL (4.8-10.8)
[2019-05-01 23:12] LABS: APPEARANCE,URINE CLEAR (CLEAR); BILIRUBIN,URINE NEGATIVE (NEGATIVE); BLOOD, URINE NEGATIVE (NEGATIVE); COLOR,URINE YELLOW (YELLOW); LEUKOCYTE ESTERASE ,URINE NEGATIVE (NEGATIVE); NITRITE, URINE NEGATIVE (NEGATIVE); UGLUCOSE NEGATIVE (NEGATIVE)
--- NOTE | 2019-05-01 23:12 | NUR ---
PT SLEEPING IN BED, AROUSABLE TO NAME, RR EVEN AND UNLABORED. VSS. 1:1 SITTER AT BEDSIDE WITH CLOSE MONITORING, SAFETY MEASURES ENSURED.
[2019-05-01 23:35] LABS: ALBUMIN 3.7 g/dL (3.4-5.0); ANION GAP 11.6 (8-16); ASPARTATE AMINOTRANSFERASE 17 U/L (15-37); CARBON DIOXIDE 29.3 mmol/L (21-32); CHLORIDE 104 mmol/L (98-107); CREATININE 1.1 mg/dL (0.7-1.3); GFR ARICAN-AMERICAN 101 mL/min (>90); GLUCOSE 102 mg/dL (74-106); POTASSIUM 3.9 mmol/L (3.5-5.1); SODIUM SERUM 141 mmol/L (136-145); TOTAL BILIRUBIN 0.6 mg/dL (0.0-1.0); UREA NITROGEN, BLOOD 16 mg/dL (7-18)
[2019-05-01 23:36] LABS: BARBITURATE, URINE NEG. ng/ml (NEG <=200); BENZODIAZEPINE, URINE NEG. ng/mL (NEG <=200); CANNABINOID, URINE POS. ng/mL (NEG <=50); COCAINE, URINE NEG. ng/mL (NEG <=300); OPIATE, URINE NEG. ng/mL (NEG <=2000); PHENCYCLIDINE SCREEN,URINE NEG. ng/mL (NEG <=25)
[2019-05-01 23:38] LABS: SALICYLATE < 2.8 mg/dL (2.8-20.0)
[2019-05-01 23:39] LABS: ACETAMINOPHEN < 0.5 ug/ml (10-30)
--- NOTE | 2019-05-02 00:59 | NUR ---
PT SLEEPING IN BED, AROUSABLE TO NAME, RR EVEN AND UNLABORED. DENIES ANY PAIN. VSS. 1:1 SITTER AT BEDSIDE WITH CLOSE MONITORING, SAFETY MEASURES ENSURED.
--- NOTE | 2019-05-02 02:33 | NUR ---
[facility] [place] s[facility] no beds [facility] s/w Jian no beds [facility] s/w Shun no beds [facility] s/w [place] no beds but fax for wait list [facility] s/w Erasmo, fax for wait list
--- NOTE | 2019-05-02 02:33 | NUR ---
AVIVA WITH [facility] CALL FF FACILITIES: [facility] [place] [facility] [place] s/w [place] no beds [facility] s/w Jian no beds [facility] s/w Shun no beds [facility] s/w [place] no beds but fax for wait list [facility] s/w Erasmo, fax for wait list
[2019-05-02] MEDS ORDERED: NACL 0.9% 1,000 ML IV SCH (02:48)
[2019-05-02] MEDS ORDERED: DOCUSATE SODIUM 100 MG GELCAP PO PRN (02:50)
[2019-05-02] MEDS ORDERED: HYDROcodone/APAP 7.5/325 MG 1 TAB PO PRN (02:50)
[2019-05-02] MEDS ORDERED: ACETAMINOPHEN 325 MG TAB PO PRN (02:50)
[2019-05-02] MEDS ORDERED: ONDANSETRON 4 MG/2 ML VIAL IM/IVP PRN (02:50)
--- NOTE | 2019-05-02 03:00 | NUR ---
DR GILMORE AT BEDSIDE. PER DR GILMORE, PT CAN BE REGULAR DIET, NOT NPO. MD TO CHANGE ORDER. PT GIVEN SANDWICH.
--- NOTE | 2019-05-02 03:15 | NUR ---
Patient will be admitted to care of DR JEFFREY. Admited to [facility]. Will go to room 122A. Belongings list completed. Report to LALY MUKHERJEE.
[2019-05-02 03:30] VITALS: BP 114/71
--- NOTE | 2019-05-02 03:30 | NUR ---
RECEIVED PT FROM ER VIA [facility] SUICIDAL IDEATION, AND SITTER AT BED SIDE 5150 PT IS AAOX4 AMBULATORY AND STILL KEEP THE IDEA FOR SUICIDAL IDEATION , SWAB HIS NOSE FOR MRSA PROTOCOL AND SENT TO LAB. PT HAS HL ON RT AC GAUGE 20 PT IS ORIENTED TO THE FLOOR CALL LIGHT WITHIN REACH., AFSHAN GILMORE IS HERE AND SEE THE PT
[2019-05-02 03:33] LABS: CHOL/HDL RATIO 1.8 (1-4.5); FREE T4 (FREE THYROXINE) 0.87 ng/dL (0.76-1.46); MAGNESIUM 1.9 mg/dL (1.8-2.4); PHOSPHORUS 4.6 mg/dL (2.5-4.9); THYROID STIMULATING HORMONE 4.42 uIU/mL (0.34-3.74)
[2019-05-02] MEDS: LORazepam 2 MG/ML VIAL IM/IVP PRN ×3 (04:21→16:35)
--- NOTE | 2019-05-02 04:21 | NUR ---
PT VERY ANXIOUS AND ATIVAN GIVEN ORDER
--- NOTE | 2019-05-02 05:00 | NUR ---
PT QUIET SLEEPING SITTER AT BED SIDE NOT DISTRESS NOTED AT THIS TIME
--- NOTE | 2019-05-02 06:24 | NUR ---
PT WILLBE ENDORSED TO DAY SHIFT NURSE FOR CONTIUE OF CARE
[2019-05-02 06:32] LABS: ANION GAP 12.5 (8-16); CARBON DIOXIDE 29.2 mmol/L (21-32); POTASSIUM 3.7 mmol/L (3.5-5.1)
[2019-05-02 06:54] LABS: PROTHROMBIN TIME 10.4 secs (10.8-13.4)
--- NOTE | 2019-05-02 08:14 | NUR ---
RECEIVED BED SIDE REPORT FROM SONAR SUBSYSTEM EQUIPMENT OPERATOR RN. PT SLEEPING, ON RA IN NO RESP DISTRESS. 1:1 SITTER AT BEDSIDE. ON SEIZURE PRECAUTIONS WITH SIDE RAILS PADDED. VS STABLE, ON REGULAR DIET, NON-DISPOSABLE TRAY BROUGHT UP ON UNIT. CALLED FNS TO BRING DISPOSABLE TRAY INSTEAD. TRAY NOT GIVEN TO PATIENT. RIGHT AC RUNNING NS AT 60CC/HR. ROOM CHECKED AND SAFE. WILL CONTINUE TO MONITOR.
--- NOTE | 2019-05-02 08:38 | NUR ---
PATIENT HAS BEEN SCREENED AND CATEGORIZED LOW NUTRITION RISK. PATIENT WILL BE SEEN WITHIN 7 DAYS OF ADMISSION. 05/08/[address]
[2019-05-02] MEDS ORDERED: busPIRone 5 MG TAB PO SCH ×2 (09:00)
[2019-05-02] MEDS ORDERED: DIVALPROEX 250 MG TABEC PO SCH (09:00)
[2019-05-02] MEDS ORDERED: ESCITALOPRAM 20 MG TAB PO SCH (09:00)
[2019-05-02] MEDS ORDERED: LURASIDONE HCL 120 MG PO SCH (09:00)
--- NOTE | 2019-05-02 09:26 | NUR ---
DISPOSABLE TRAY GIVEN TO PATIENT. PT ON REGULAR DIET. PT STATED HE FEELS ANXIOUS. GAVE AM MEDS TO PATIENT WHICH INCLUDE 2 ANTIANXIETY MEDS. WILL CONTINUE TO MONITOR.
[2019-05-02 09:43] VITALS: BP 93/50
--- NOTE | 2019-05-02 11:50 | NUR ---
GAVE ATIVAN PRN PER MD ORDER. WILL CONTINUE TO MONITOR.
--- NOTE | 2019-05-02 13:27 | NUR ---
RECEIVED A CALL FROM YAZ CARRILLO, SHE STATED THAT PATIENT GOT ACCEPTED AT [facility], PATIENT IS GOING TO ROOM 1007, [facility] UN[address] WILL BE DR. ENRIQUEZ. CONTACTED [facility] AT [phone], ABLE TO SPEAK TO WILBUR. SHE CONFIRMED PROVIDED INFORMATION OF THE NURSE. TIEN FROM [facility] AT [phone], MADE AWARE.
[2019-05-02] MEDS ORDERED: DIVALPROEX 500 MG TABEC PO SCH (13:32)
--- NOTE | 2019-05-02 15:02 | NUR ---
CALLED AND GAVE REPORT TO ONUR FROM [facility]. SENIOR WIND TURBINE TECHNICIAN TIME 1700. PT SLEEPING COMFORTABLY IN BED, IN NO DISTRESS, WILL CONTINUE TO MONITOR. Addendum: 05/02/19 at 1554 by Mike Gimenez RN SENIOR WIND TURBINE TECHNICIAN TIME NOT YET CONFIRMED FOR 1700.
--- NOTE | 2019-05-02 15:50 | NUR ---
Transportation approved by cyber systems administrator to transfer the patient to [facility] through [facility] who provided a quote of $245. Enid Ramirez, ACSW Ext [phone]
[2019-05-02 16:01] VITALS: BP 117/78
--- NOTE | 2019-05-02 16:10 | NUR ---
MET WITH THE PATIENT AT BEDSIDE, PRIMARY RN AT BEDSIDE WELL. INFORMED THE PATIENT THAT HE IS GOING TO [facility]. PATIENT STATED THAT HE DID NOT WANT TO GO THERE. HE STATED "THEY DO NOT PROVIDE GROUP SESSIONS ALL THEY DO IS PROVIDE US WITH SNACKS" I ASKED HIM IF HE DISCUSSED HIS CONCERNS WHILE HE WAS THERE. HE ANSWERED NO. I ALSO EXPLAINED TO HIM THAT, THAT IS THE ONLY FACILITY THAT ACCEPTED HIM AND WITH LIMITED BED AVAILABILITY DESPITE HIS PREFERENCE
--- NOTE | 2019-05-02 16:20 | NUR ---
CONTACTED [employer] AT [phone], SPOKE TO KAMERON. SENIOR INTERACTIVE DEVELOPER WILL BE AT [phone]. PRIMARY RN MADE AWARE
--- NOTE | 2019-05-02 16:37 | NUR ---
GAVE ATIVAN PRN PER MD ORDER. PT ANXIOUS AND UPSET ABOUT GOING TO [facility] [place]. WILL CONTINUE TO MONITOR. VS STABLE AT THIS TIME.
--- NOTE | 2019-05-02 19:01 | NUR ---
PT PICKED UP BY [facility]. PERSONAL BELONGINGS GIVEN TO PATIENT. PT STABLE. IV OUT, NO BLEEDING NOTED. WRISTBAND CUT OUT.
== END 2019-05-02 19:00 | DRG 812 ==
LOC: MED 22:17 → MTU 05-02 02:55
PROVIDERS: ADMIT General Practice; ATTEND General Practice
DX: T50.991A Poisoning by other drugs, medicaments and biological substances, accidental (unintentional), initial encounter (principal); G92 Toxic encephalopathy; R45.851 Suicidal ideations; F31.9 Bipolar disorder, unspecified; F19.10 Other psychoactive substance abuse, uncomplicated; F41.8 Other specified anxiety disorders; F17.210 Nicotine dependence, cigarettes, uncomplicated; F15.90 Other stimulant use, unspecified, uncomplicated; F12.90 Cannabis use, unspecified, uncomplicated; F41.9 Anxiety disorder, unspecified; G40.909 Epilepsy, unspecified, not intractable, without status epilepticus; Y92.89 Other specified places as the place of occurrence of the external cause
CPT/HCPCS: 36415; 71045; 80048; 80053; 80305; 81003; 82150; 83036; 83605; 83690; 83735; 83880; 84100; 84439; 84443; 84484; 85025; 85610; 85730; 87081; 93005; 99285; G0480; G0482; J2060; Q0092

== ENCOUNTER 2023-06-22 12:40 | Emergency (ER) | payer MEDICAID ==
[~2023-06-22] VITALS: Ht 185.4 cm; Wt 90.7 kg
[~2023-06-22 12:40] MED LIST changes: -BEN50 PO; -BUS5 PO; -DIVA250T PO; -LURA80TA PO; +LURA80TA1 PO; -TRAZ-343 PO
[2023-06-22 12:49] VITALS: BP 129/87; PULSE 74; RESP 18; TEMP 98.3; O2SAT 97
[2023-06-22 13:15] LABS: BASOPHILS # (AUTO) 0.1 K/uL (0.00-0.22); BASOPHILS % (AUTO) 0.6 % (0.0-2.0); EOSINOPHILS # (AUTO) 0.2 K/uL (0-0.4); EOSINOPHILS % (AUTO) 1.7 % (0.0-4.0); HEMOGLOBIN 13.2 g/dL (12.0-18.0); LYMPHOCYTES # (AUTO) 3.2 K/uL (2.0-11.5); LYMPHOCYTES % (AUTO) 33.8 % (20.5-51.1); MEAN CORPUSCULAR HEMOGLOBIN 29 pg (27-31); MEAN CORPUSCULAR HGB CONC 34 g/dL (33-37); MEAN CORPUSCULAR VOLUME 84.4 fL (80-94); MONOCYTES % (AUTO) 10.2 % (1.7-9.3); NEUTROPHILS % (AUTO) 53.7 % (42.2-75.2); PLATELET COUNT (AUTO) 286 K/uL (140-450); RED BLOOD CELL COUNT(AUTO) 4.62 MIL/uL (4.20-6.10); RED CELL DISTRIBUTION WIDTH 14.1 % (11.6-13.7); WHITE BLOOD COUNT (AUTO) 9.3 K/uL (4.8-10.8)
[2023-06-22] MEDS ORDERED: fentaNYL citrate 0.05 MG/ML VIAL IVP ONE (13:20)
[2023-06-22] MEDS ORDERED: KETOROLAC 30 MG/ML VIAL IVP ONE (13:45)
[2023-06-22 13:50] LABS: ALBUMIN 4.3 g/dL (3.4-5.0); ANION GAP 11.6 (8-16); CALCIUM 9.2 mg/dL (8.5-10.1); CARBON DIOXIDE 28.9 mmol/L (21-32); CREATININE 0.9 mg/dL (0.6-1.3); POTASSIUM 3.5 mmol/L (3.5-5.1); TOTAL BILIRUBIN 0.5 mg/dL (0.0-1.0); TOTAL PROTEIN, SERUM 7.6 g/dL (6.4-8.2)
[2023-06-22 14:33] VITALS: BP 123/86; PULSE 72; RESP 18; TEMP 98.3; O2SAT 98
== END 2023-06-22 15:05 | disposition home or self-care (01) ==
LOC: MED 12:40
DX: K40.90 Unilateral inguinal hernia, without obstruction or gangrene, not specified as recurrent (principal); Z86.69 Personal history of other diseases of the nervous system and sense organs; Z79.899 Other long term (current) drug therapy
CPT/HCPCS: 36415; 74177; 80053; 83690; 85025; 99285; Q9967; J1885